=== PATIENT | female | born 1970 | race Caucasian/White ===

== ENCOUNTER 2016-07-22 14:16 | Emergency (ER) | payer BC ==
[~2016-07-22] VITALS: Ht 167.6 cm; Wt 69.6 kg
[~2016-07-22 14:16] MED LIST: CEPH500C2 PO; FLUO20CA35 PO; PROM25TA9 PO; RIZA10TA18 PO
[2016-07-22 14:19] VITALS: TEMP 36.3; Ht 167.6 cm; Wt 69.6 kg
[2016-07-22] MEDS ORDERED: XYLOCAINE 1%/SOD BICARB 20 ML VIAL INFIL ONE (14:25)
[2016-07-22] MEDS ORDERED: MULT-506 PO (14:26)
--- NOTE | 2016-07-22 15:23 | DIAGNOSTIC IMAGING REPORT ---
RIGHT HAND MIN 3 VIEWS ROUTINE CLINICAL HISTORY: Right index finger pain status post trauma. Laceration. COMPARISON: None. DISCUSSION: There is artifact from overlying bandage at the level of the index finger. There is evidence for a soft tissue injury involving the mid to distal aspect of the index finger. No acute fractures or subluxations are visualized. IMPRESSION: Soft tissue injury involving the index finger. No fractures are visualized. Electronically signed by: Kevin Moffett M.D. 07/22/2016 3:22 PM Dictated Date/Time: 07/22/2016 3:20 PM
[2016-07-22 15:52] VITALS: BP 122/74; PULSE 66; O2SAT 99
--- NOTE | 2016-07-23 21:15 | EMERGENCY ROOM VISIT NOTE ---
ED Visit Note First contact with patient: 14:27 Chief Complaint: I cut my right index finger. History of Present Illness: Ms. Aram Howard is a 45-year-old white female who ambulates into the ED complaining of a distal phalanx right index finger laceration. Patient reports just prior to coming in the hospital she was making lunch. She attempted to grab the blade of a research food technologist while he was still running and sustained a laceration to the right index finger. She attempted to control bleeding prior to arrival at the hospital but did not wash her wound. Associated with her and she reports she has a stinging pain over the distal finger. She rates this discomfort 4/10. The pain is nonradiating. Pain worsens with palpation. She has not identified any alleviating factors related to the pain. She has not taken any medication for pain prior to arrival at the hospital. She denies any associated symptoms including other finger pain, hand pain, right index finger numbness/tingling. Review of Systems: As noted above in history of present illness. 8 body systems were reviewed and found to be negative as noted above. Past Medical History: Migraine headaches, uterine ablation. Current Medications: Prozac, Maxalt, Phenergan, multivitamins. Allergies to Medications: Patient denies. Social History: Patient is currently employed; she feels safe in her home environment; she denies tobacco and alcohol use. Tetanus Immunization Status: Patient reports up-to-date. Physical Examination: Vital Signs: Date Time Temp Pulse Resp B/P Pulse Ox O2 Delivery O2 Flow Rate FiO2 07/22/16 15:52 66 18 122/74 99 07/22/16 14:19 36.3 83 17 126/76 99 Room Air GENERAL: 45-year-old female in mild distress due to pain, nontoxic-appearing, afebrile and hemodynamically stable. NEUROLOGICAL: Awake, alert and oriented to person, place and time. Answering questions appropriately and following commands. SKIN: Warm, dry and pink. Right Index Finger: Patient has a total of a 4 cm full-thickness lacerations over the distal phalanx. There is a flap associated with her laceration and there is active bleeding. RIGHT INDEX FINGER: Soft tissue injury as noted above. No gross bony deformity. Full range of motion of the DIP, PIP and MCP joints of the finger. The finger was warm and pink and capillary refill is brisk. She distinguish light sensations through all dermatomes. ED Course: Patient is assessed as noted above. Right Index Finger Laceration X-Rays: Were read by myself and shows no acute fractures or dislocations. Wound Repair: Complexity: Basic Verbal consent was obtained after the risks and benefits were explained. The skin was prepped with betadine and a sterile field set. Wound edges of the wound was anesthetized with 2.5 ml buffered 1% lidocaine. The wound was explored for foreign bodies and none found. Copious irrigation was performed using sterile saline. With direct pressure the bleeding subsided. Debridement was not performed. The wound edges were approximated using 5-0 Ethilon with 10 simple interrupted sutures. Hemostasis and excellent approximation was achieved. Antibacterial ointment, a sterile dressing applied and a finger splint was applied. No complications and the patient tolerated the procedure well. Patient was educated about tonight's findings and instructed on his treatment plan; he verbalizes understanding and agreement with this plan. Clinical Impression: Laceration of the right index finger. Disposition: Patient discharged home in stable condition; prior to departure he was reassessed and subjectively reported she was pain-free. Plan: Comfort measures, wound care, and signs of infection were discussed with the patient. Patient was encouraged to follow-up with PCP or return to the ED for signs of infection and/or suture removal in 10-12 days.
== END 2016-07-22 15:54 | disposition home or self-care (01) ==
LOC: C.EDB 14:18 → C.EDD 15:54
DX: S61.210A Laceration without foreign body of right index finger without damage to nail, initial encounter (principal); X15.8XXA Contact with other hot household appliances, initial encounter; Y92.010 Kitchen of single-family (private) house as the place of occurrence of the external cause; G43.909 Migraine, unspecified, not intractable, without status migrainosus; Z79.899 Other long term (current) drug therapy

== ENCOUNTER 2016-07-30 10:35 | Emergency (ER) | payer BC ==
[~2016-07-30] VITALS: Ht 167.6 cm; Wt 69.9 kg
[~2016-07-30 10:35] MED LIST changes: -CEPH500C2 PO; +MULT-506 PO
[2016-07-30 10:36] VITALS: TEMP 36.8; Ht 167.6 cm; Wt 69.9 kg
[2016-07-30] MEDS ORDERED: DiphenhydrAMINE HCL 50 MG/ML VIAL IV STA (10:46)
[2016-07-30] MEDS ORDERED: KETOROLAC TROMETHAMINE 30 MG/ML VIAL IV STA (10:46)
[2016-07-30] MEDS ORDERED: SODIUM CHLORIDE 0.9% 1000ML 1,000 ML IV STA (10:46)
[2016-07-30] MEDS ORDERED: PROMETHAZINE HCL INJ 12.5 MG in SODIUM CHLORIDE 0.9% 50ML 50 ML IV STA (10:46)
--- NOTE | 2016-07-30 10:47 | EMERGENCY ROOM VISIT NOTE ---
History Report prepared by Rivera: Lela Cat Under the Supervision of: Dr. David Galeana M.D. First contact with patient: 10:41 Chief Complaint: HEADACHE Stated Complaint: MIGRAINE History of Present Illness The patient is a 45 year old female who presents to the Emergency Room with complaints of a persistent migraine headache that began this morning. The patient has a history of migraine headaches and states that her current symptoms feel consistent with previous migraines. Her most recent ED visit for a migraine was September 2015. It is not the worst headache of her life. She also complains of nausea and vomiting. The patient is on Maxalt and tried to take it this morning, but could not keep it down. Denies weakness, loss of bowel or bladder control, or other complaints. Source of History: patient Onset: this morning Position: head Quality: other (migraine) Timing: other (persistent) Associated Symptoms: + nausea, + vomiting, No weakness Review of Systems See HPI for pertinent positives & negatives. A total of 10 systems reviewed and were otherwise negative. Past Medical & Surgical Medical Problems: (1) Anxiety (2) Depression (3) H/O migraine Family History Hypertension Kidney disease Social History Smoking Status: Never Smoker Marital Status: Housing Status: lives with significant other Occupation Status: employed Current/Historical Medications Scheduled Cephalexin Monohydrate (Keflex), 500 MG PO TID Fluoxetine (Prozac), 40 MG PO DAILY Loratadine (Claritin), 10 MG PO DAILY Multivitamin (Multivitamin), 1 TAB PO DAILY Scheduled PRN Promethazine Hcl (Phenergan), 25 MG PO Q6H PRN for Nausea Rizatriptan Benzoate (Maxalt), 10 MG PO UD PRN for Migraine Allergies Coded Allergies: No Known Allergies (Verified , 07/30/16) Physical Exam Vital Signs Date Time Temp Pulse Resp B/P Pulse Ox O2 Delivery O2 Flow Rate FiO2 07/30/16 12:15 91 16 125/78 98 Room Air 07/30/16 10:36 36.8 89 20 135/87 99 Room Air Physical Exam GENERAL: Patient is well appearing and in mild distress. Lights off in the room. HEAD: No acute trauma, normocephalic atraumatic ENT: Mucous membranes moist, no nasal congestion. EYES: Equal/Reactive Bilaterally, No scleral icterus, Normal ROM NECK: No nuchal rigidity, no meningismus, trachea is midline, full ROM LUNGS: No dyspnea. Clear to auscultation and equal bilaterally. No wheeze, no rhonchi. HEART: Regular rate and rhythm. No murmurs, rubs, gallops appreciated. ABDOMEN: Soft, nontender, bowel sounds positive, no masses appreciated, no peritonitis. BACK: No midline tenderness, no CVA tenderness EXTREMITIES: Normal motion all extremities, no cyanosis, no edema. NEUROLOGIC: Awake, Alert, Oriented, no acute motor or sensory deficits, no focal weakness, cranial nerves grossly intact. SKIN: No rash, no jaundice, no diaphoresis. Complex laceration right finger, swollen, no drainage, decreased sensation over tip, no streaking. Medical Decision & Procedures Medications Administered Medications (Trade) Dose Ordered Sig/[facility] Route Start Time Stop Time Status Last Admin Dose Admin Ketorolac Tromethamine 30 mg 30 mg NOW STAT IV 07/30/16 10:46 07/30/16 10:48 DC 07/30/16 10:55 30 MG Promethazine HCl 12.5 mg/Sodium Chloride 50.5 ml @ 204 mls/hr NOW STAT IV 07/30/16 10:46 07/30/16 11:00 DC 07/30/16 10:58 204 MLS/HR Sodium Chloride (Nss 1000ml) 1,000 ml @ 999 mls/hr Q1H1M STAT IV 07/30/16 10:46 07/30/16 11:46 DC 07/30/16 10:55 999 MLS/HR Diphenhydramine HCl (Benadryl Inj) 25 mg NOW STAT IV 07/30/16 10:46 07/30/16 10:48 DC 07/30/16 10:54 25 MG Hydromorphone HCl (Dilaudid Inj) 1 mg NOW STAT IV 07/30/16 11:31 07/30/16 11:32 DC 07/30/16 11:37 1 MG Dexamethasone Sodium Phosphate (Decadron Inj) 10 mg NOW ONCE IV 07/30/16 11:45 07/30/16 11:46 DC 07/30/16 11:37 10 MG Cephalexin Monohydrate (Keflex 500MG Home Pack) 1 homepack NOW ONCE PO 07/30/16 12:15 07/30/16 12:16 DC 07/30/16 12:21 1 HOMEPACK Cephalexin Monohydrate (Keflex Cap) 500 mg NOW ONCE PO 07/30/16 12:15 07/30/16 12:16 DC 07/30/16 12:20 500 MG ED Course 1044: The patient was evaluated in room A9. A complete history and physical exam was performed. 1046: Ordered Benadryl Inj 25 mg IV, NSS 1000 ml @ 999 mls/hr IV, Promethazine HCl 12.5 mg/NSS 50.5 ml @ 204 mls/hr IV, Toradol Inj 30 mg IV. 1130: Ordered Dilaudid Inj 1 mg IV. 1145: Ordered Decadron Inj 10 mg IV. 1150: I reassessed the patient. She is feeling much better. 1205: I reassessed the patient and removed 10 sutures from the distal finger and placed Steri Strips. Discussed results and discharge instructions: She verbalized understanding and agreement. The patient is ready for discharge. 1215: Ordered Keflex Cap 500 mg PO, Keflex 500 mg 1 homepack PO. Medical Decision Differential: Headache, Migraine, Cluster Headache, Seizure, Meningitis, Sinusitis, CO exposure, ICH/SAH, Infectious, Tumor, Sinus Thrombosis, Arterial Dissection, amongst other pathologies entertained. 45 yr old female with periodic severe headaches attributed to migraines with last ED visit 1 year ago. No fever, neck stiffness, nor neuro deficits. No recent trauma, falls, syncope. Partially resolved with toradol/phen/benadryl and fully resolved with dose dilaudid/decadron (discussed risks narcotics). Has sutures right pointer finger (left handed) which need to be removed. No clear evidence of infection though is somewhat swollen and mildly erythematous laterally, thus given complex wound will place on brief course of abx. Minimal distal tip sensation but cap refill intact. Discussed wound care, monitoring and if signs of infection RTED. Impression Primary Impression: Headache Additional Impressions: Migraine Encounter for removal of sutures Encounter for re-check of laceration wound Scribe Attestation The scribe's documentation has been prepared under my direction and personally reviewed by me in its entirety. I confirm that the note above accurately reflects all work, treatment, procedures, and medical decision making performed by me. Departure Information Dispostion Home / Self-Care Prescriptions Cephalexin Monohydrate (Keflex) 500 Mg Cap 500 MG PO TID for 5 Days, #15 CAP Prov: David Galeana M.D. 07/30/16 Referrals Sharon Martinez M.D. (MEDICAL) (PCP) Patient Instructions ED Headache Migraine, My [facility] Additional Instructions Monitor closely for signs of infection. If drainage, red streaks, severe pain, or other concerns return for further evaluation. Steri Strips will fall off over the next few days and if not can be gentle removed after washing with some soap and water. Do not soak finger until wound is fully healed. Problem Qualifiers Primary Impression: Headache Headache type: unspecified Headache chronicity pattern: acute headache Intractability: not intractable Qualified Codes: R51 - Headache Additional Impressions: Migraine Migraine type: unspecified Status migrainosus presence: without status migrainosus Intractability: not intractable Qualified Codes: G43.909 - Migraine, unspecified, not intractable, without status migrainosus
[2016-07-30] MEDS ORDERED: LORA10TA51 PO (11:03)
[2016-07-30] MEDS ORDERED: HYDROmorphone INJ 1 MG/ML SYR IV STA (11:31)
[2016-07-30] MEDS ORDERED: DEXAMETHASONE SOD INJ 10 MG/ML VIAL IV ONE (11:45)
[2016-07-30 12:15] VITALS: BP 125/78; PULSE 91; O2SAT 98
[2016-07-30] MEDS ORDERED: CEPHALEXIN 500MG HOME PACK 1 EA BTL PO ONE (12:15)
[2016-07-30] MEDS ORDERED: CEPHALEXIN MONOHYDRATE 250 MG CAP PO ONE (12:15)
[2016-07-30] MEDS ORDERED: CEPH500C PO (12:18)
== END 2016-07-30 12:27 | disposition home or self-care (01) ==
LOC: C.EDB 10:36 → C.EDA 12:27
DX: R51 Headache (principal); Z48.02 Encounter for removal of sutures; F32.9 Major depressive disorder, single episode, unspecified; F41.9 Anxiety disorder, unspecified; Z79.899 Other long term (current) drug therapy; Z82.49 Family history of ischemic heart disease and other diseases of the circulatory system

== ENCOUNTER → 2017-02-24 | Outpatient (CLI) | payer BC ==
[~2017-02-24] MED LIST changes: +LORA10TA51 PO
--- NOTE | 2017-02-25 07:42 | MAMMOGRAPHY REPORT ---
BILATERAL DIGITAL SCREENING MAMMOGRAM TOMOSYNTHESIS WITH CAD: 02/24/2017 CLINICAL HISTORY: Routine screening. Patient has no complaints. TECHNIQUE: Breast tomosynthesis in addition to standard 2D mammography was performed. Current study was also evaluated with a Computer Aided Detection (CAD) system. COMPARISON: Comparison is made to exams dated: 02/22/2016 mammogram, 02/14/2015 mammogram, 09/20/2013 ma mmogram, 09/11/2012 mammogram, 09/06/2011 mammogram, and 09/18/2011 mammogram - [facility] ter. BREAST COMPOSITION: The tissue of both breasts is heterogeneously dense, which may obscure small mas ses. FINDINGS: There are benign scattered calcifications in both breasts. No new suspicious mass, jovanni ectural distortion or cluster of microcalcifications is seen. IMPRESSION: ACR BI-RADS CATEGORY 2: BENIGN There is no mammographic evidence of malignancy. A 1 year screening mammogram is recommended. The pa tient will receive written notification of the results. Approximately 10% of breast cancers are not detected with mammography. A negative mammographic report should not delay biopsy if a clinically suggestive mass is present. Fe Thapa M.D. ay/:02/24/2017 16:48:22 General Dentist: Eladia SWARTZ(Rosalinda)(M), [facility] letter sent: Normal 1/2 BI-RADS Code: ACR BI-RADS Category 2: Benign
== END | disposition home or self-care (01) ==
LOC: C.MAMM 08:48
PROVIDERS: ATTEND Family Medicine
DX: Z12.31 Encounter for screening mammogram for malignant neoplasm of breast (principal)

== ENCOUNTER 2017-06-21 23:33 | Emergency (ER) | payer BC, OTHER ==
[~2017-06-21] VITALS: Ht 167.6 cm; Wt 73.2 kg
[2017-06-21 23:41] VITALS: TEMP 36.4; Ht 167.6 cm; Wt 73.2 kg
[2017-06-21] MEDS ORDERED: SODIUM CHLORIDE 0.9% 1000ML 1,000 ML IV STA (23:57)
[2017-06-21] MEDS ORDERED: KETOROLAC TROMETHAMINE 30 MG/ML VIAL IV STA (23:57)
[2017-06-21] MEDS ORDERED: PROMETHAZINE HCL INJ 12.5 MG in SODIUM CHLORIDE 0.9% 50ML 50 ML IV STA (23:57)
[2017-06-21] MEDS ORDERED: DiphenhydrAMINE HCL 50 MG/ML VIAL IV STA (23:57)
--- NOTE | 2017-06-22 00:06 | EMERGENCY ROOM VISIT NOTE ---
ED Visit Note First contact with patient: 23:45 CHIEF COMPLAINT: Migraine headache HISTORY OF PRESENT ILLNESS: This 46-year-old female patient presented to the emergency department ambulatory, with a gradual onset of a severe generalized headache that started approximately 4 hours ago. The patient states the migraine is similar to their typical migraines. There has been associated photophobia, phonophobia, nausea and vomiting. The patient denies fever or chills recently, and there is no weakness or numbness of the extremities. There is no difficulty with speech or vision. No trauma to the head and no neck pain. The pain is located in the posterior aspect of the head, is severe, constant, and it is slowly increasing in severity. The patient rates the pain as severe and 10/10. The patient has taken one dose of Maxalt one and half hours after onset of migraine without relief. This is not the worst headache of the life and is similar to previous migraines. Previous imaging studies of the brain have been normal. REVIEW OF SYSTEMS: A 10 system review of systems was performed with positives and pertinent negatives listed in the history of present illness. All other systems were reviewed and are negative. ALLERGIES: None MEDICATIONS: Maxalt, Prozac PMH: Anxiety, depression SOCIAL HISTORY: The patient lives locally with family. She denies drug, alcohol , tobacco use. PHYSICAL EXAM: Vital Signs: Reviewed Nurse's notes, vital signs stable. GENERAL : This is a 46-year-old white female, who appears in pain, but non toxic in appearance and in no acute distress. MENTAL STATUS: Alert, oriented, and coherent. HEENT: Normocephalic. PERRLA. EOMI. Nares patent without nuchal rigidity. Tympanic membranes pearly christiansen without erythema or effusion bilaterally. Mucous membranes moist. NECK: Supple, no nuchal rigidity, nontender, no lymphadenopathy. HEART: Regular rhythm and normal rate without murmurs, ectopy, gallops, or rubs. LUNGS: Clear to auscultation bilaterally without wheezes, rales or rhonchi. No dullness to percussion. No accessory muscle use. No retractions. SKIN: Normal. NEUROLOGICAL: Pupils are round, equal and react to light. The optic fundi are normal and the discs are flat. The patient moves all extremities well and the gait is normal. EMERGENCY DEPARTMENT COURSE: I examined the patient. The patient has been seen here in the past for migraines. Previous medical records reviewed. The patient was given 1L NSS, 12.5 mg Phenergan, 30 mg Toradol, and 25 mg Benadryl IV. She was reassessed, and states she is feeling much better and is ready to go home. Discharge instructions reviewed, the patient was discharged home with her driving. I attest that I have personally reviewed the patient's current medication list. Patient was found to have normal blood pressure on screening and does not require follow-up. The differential diagnosis includes acute intracranial bleed, meningitis, encephalitis, mass or mass effect, sinusitis, infection, tumor, headache, temporal arteritis and carbon monoxide exposure, and migraine. The patient was discharged home in stable condition with [] driving. DIAGNOSIS: Migraine headache Current/Historical Medications Scheduled Calcium Carbonate-Vitamin D (Calcium), 1 TAB PO DAILY Fluoxetine (Prozac), 40 MG PO DAILY Loratadine (Claritin), 10 MG PO DAILY Multivitamin (Multivitamin), 1 TAB PO DAILY Scheduled PRN Promethazine Hcl (Phenergan), 25 MG PO Q6H PRN for Nausea Rizatriptan Benzoate (Maxalt), 10 MG PO UD PRN for Migraine Allergies Coded Allergies: No Known Allergies (Verified , 06/22/17) Vital Signs Date Time Temp Pulse Resp B/P (MAP) Pulse Ox O2 Delivery O2 Flow Rate FiO2 06/22/17 01:32 102 20 102/59 98 06/21/17 23:41 36.4 91 18 134/92 100 Room Air Medications Administered Medications (Trade) Dose Ordered Sig/[facility] Route Start Time Stop Time Status Last Admin Dose Admin Sodium Chloride 1,000 ml @ 999 mls/hr Q1H1M STAT IV 06/21/17 23:57 06/22/17 00:57 DC 06/22/17 00:18 999 MLS/HR Ketorolac Tromethamine (Toradol Inj) 30 mg NOW STAT IV 06/21/17 23:57 06/22/17 00:04 DC 06/22/17 00:18 30 MG Diphenhydramine HCl (Benadryl Inj) 25 mg NOW STAT IV 06/21/17 23:57 06/22/17 00:04 DC 06/22/17 00:18 25 MG Promethazine HCl 12.5 mg/Sodium Chloride 50.5 ml @ 204 mls/hr NOW STAT IV 06/21/17 23:57 06/22/17 00:11 DC 06/22/17 00:20 204 MLS/HR Departure Information Impression Primary Impression: Migraine Dispostion Home / Self-Care Condition GOOD Referrals Sharon Martinez M.D. (MEDICAL) (PCP) Patient Instructions ED Headache Migraine, My [facility] Additional Instructions DO NOT drive, drink alcohol, operate machinery, or perform dangerous activities today. You were given medications in the ER that can affect your ability to safely function or operate a vehicle. Rest today in a quiet, peaceful, dark environment and get a full 8-10 hrs of sleep tonight. Avoid loud noises, smoke/smoking, alcohol, bright lights, stress, or physical exertion today to minimize the chance the headache may return. Continue current medications as prescribed. Ibuprofen(Motrin, Advil) may be used for fever or pain. Use 600mg every six hours as needed. Take with food. Avoid using more than 2400mg in a 24 hour period. Do not use 2400mg per day for more than three consecutive days without physician direction. Prolonged inappropriate use can lead to stomach upset or ulcers. (AND/OR) Acetaminophen(Tylenol) may be used for fever or pain. Use 1000mg every six hours as needed. Avoid using more than 3000mg in a 24 hour period. Return to the ER for passing out, worsening headache, vision problems, neck stiffness/pain, fevers, vomiting, worsening of your condition, or as needed. Follow up with your primary physician in 2-3 days for a recheck of your current condition. Problem Qualifiers Primary Impression: Migraine Migraine type: without aura Status migrainosus presence: with status migrainosus Intractability: intractable Qualified Codes: G43.011 - Migraine without aura, intractable, with status migrainosus
[2017-06-22] MEDS ORDERED: CALC-51 PO (00:20)
[2017-06-22 01:32] VITALS: BP 102/59; PULSE 102; O2SAT 98
== END 2017-06-22 01:33 | disposition home or self-care (01) ==
LOC: C.EDB 23:35 → C.EDA 06-22 01:33
DX: G43.011 Migraine without aura, intractable, with status migrainosus (principal); F32.9 Major depressive disorder, single episode, unspecified; F41.9 Anxiety disorder, unspecified

== ENCOUNTER 2017-09-17 08:26 | Emergency (ER) | payer OTHER ==
[~2017-09-17 08:26] MED LIST changes: +CALC-51 PO
[2017-09-17 08:37] VITALS: TEMP 36.5
[2017-09-17] MEDS ORDERED: KETOROLAC TROMETHAMINE 30 MG/ML VIAL IV STA (09:07)
[2017-09-17] MEDS ORDERED: SODIUM CHLORIDE 0.9% 1000ML 1,000 ML IV STA (09:07)
[2017-09-17] MEDS ORDERED: PROMETHAZINE HCL INJ 12.5 MG in SODIUM CHLORIDE 0.9% 50ML 50 ML IV STA (09:07)
[2017-09-17] MEDS ORDERED: DiphenhydrAMINE HCL 50 MG/ML VIAL IV STA (09:07)
[2017-09-17] MEDS ORDERED: CLR10 PO (09:22)
[2017-09-17 09:29] LABS: BASO % 0.6 %; BASO ABS # 0.05 K/uL (0-0.2); EOS % 1.1 %; EOS ABS # 0.09 K/uL (0-0.5); HEMATOCRIT 39.8 % (37-47); HEMOGLOBIN 13.5 g/dL (12.0-16.0); IG# 0.01 K/uL (0.00-0.02); LYMPH % 5.7 %; LYMPH ABS # 0.45 K/uL (1.2-3.4); MEAN CELL VOLUME 88.8 fL (80-100); MEAN CORPUSCULAR HEMOGLOBIN 30.1 pg (25-34); MEAN CORPUSCULAR HGB CONC 33.9 g/dl (32-36); MEAN PLATELET VOLUME 9.1 fL (7.4-10.4); MONO % 5.3 %; MONO ABS # 0.42 K/uL (0.11-0.59); NEUT % 87.2 %; NEUT ABS # 6.92 K/uL (1.4-6.5); PLATELET COUNT 240 K/uL (130-400); RED CELL DISTRIBUTION WIDTH CV 13.1 % (11.5-14.5); RED CELL DISTRIBUTION WIDTH SD 42.6 fL (36.4-46.3); WHITE BLOOD COUNT 7.94 K/uL (4.8-10.8)
[2017-09-17 09:47] LABS: ALBUMIN 3.6 gm/dl (3.4-5.0); ALT/SGPT 21 U/L (12-78); AST/SGOT 18 U/L (15-37); BLOOD UREA NITROGEN 13 mg/dl (7-18); CALCIUM 8.8 mg/dl (8.5-10.1); CARBON DIOXIDE 30 mmol/L (21-32); CREATININE 0.73 mg/dl (0.60-1.20); GLUCOSE 89 mg/dl (70-99); POTASSIUM 3.8 mmol/L (3.5-5.1); SODIUM 137 mmol/L (136-145)
[2017-09-17 09:50] LABS: ALKALINE PHOSPHATASE 52 U/L (45-117); TOTAL PROTEIN 7.4 gm/dl (6.4-8.2)
--- NOTE | 2017-09-17 11:12 | EMERGENCY ROOM VISIT NOTE ---
History First contact with patient: 08:41 Chief Complaint: HEADACHE Stated Complaint: MIGRAINE History of Present Illness The patient is a 47 year old female who presents to the Emergency Room via private vehicle accompanied by male with complaints of "migraine headache". The patient states that she has a history of migraines of which she follows with her family doctor for. She states that she began with a headache this morning which is identical to previous migraines however the only difference is now she has minimal right-sided neck pain. She notes light sensitivity as usual , as well as nausea, vomiting and diarrhea. She tried Maxalt around 6:40 AM without relief. She denies any recent illness, speech troubles, weakness. notes no change from baseline migraine. Review of Systems A complete 10-point Review of Systems was discussed with the patient, with pertinent positives and negatives listed in the History of Present Illness. All remaining Review of Systems questions can be considered negative unless otherwise specified. Past Medical/Surgical History Medical Problems: (1) Anxiety (2) Depression (3) H/O migraine Family History Hypertension Kidney disease Social History Smoking Status: Former Smoker Marital Status: Housing Status: lives with significant other Occupation Status: employed Current/Historical Medications Scheduled Fluoxetine (Prozac), 40 MG PO DAILY Loratadine (Claritin), 10 MG PO DAILY Multivitamin (Multivitamin), 1 TAB PO DAILY Scheduled PRN Rizatriptan Benzoate (Maxalt), 10 MG PO UD PRN for Migraine Physical Exam Vital Signs Date Time Temp Pulse Resp B/P (MAP) Pulse Ox O2 Delivery O2 Flow Rate FiO2 09/17/17 11:23 76 16 91/42 98 09/17/17 10:53 80 20 98/59 97 Room Air 09/17/17 10:01 82 20 117/72 100 09/17/17 09:30 80 20 107/60 97 09/17/17 08:37 36.5 72 20 119/42 98 Room Air Physical Exam VITAL SIGNS - Vital signs and nursing notes were reviewed. Stable. GENERAL -47-year-old female appearing her stated age who is in no acute distress. Communicates well with provider and answers questions appropriately. SKIN - Without rashes. No meningeal petechial rash. HEAD - NC/AT. EYES - PERRL with EOMI bilaterally. Sclera anicteric. Palpebral conjunctiva pink and moist with no injection noted. EARS - No deformities of external structures noted on gross examination bilaterally. No pain elicited with palpation of the tragus bilaterally. External auditory canals without discharge or otorrhea. Tympanic membranes pearly christiansen without retraction or bulging. No fluid or purulent material visualized behind the TM. Handle of malleus, umbo, cone of light, pars tensa/ flaccid all easily visualized. NOSE - Midline and without cyanosis. No epistaxis or purulent drainage noted. Septum midline without deviation or septal hematoma noted. MOUTH/OROPHARYNX - Without perioral cyanosis. Buccal mucosa pink and moist and without leukoplakia. Tongue midline with equal elevation of palate bilaterally. No tonsillar hypertrophy, erythema, or exudates noted. Fair dentition noted. NECK - Neck with FROM. Supple to palpation. No lymphadenopathy noted. No nuchal rigidity. No real identifiable tenderness or abnormality in the right side of the neck. LUNGS - Chest wall symmetric without accessory muscle use, intercostals retractions, or central cyanosis. Normal vesicular breath sounds CTA B/L. No wheezes, rales, or rhonchi appreciated. CARDIAC - RRR with S1/S2. No murmur, rubs, or gallops appreciated. EXTREMITIES - No clubbing or peripheral cyanosis. No pretibial edema present. + 5/5 strength noted in UE/LE bilaterally. NEUROLOGIC - Cranial nerves II through XII grossly intact. Sensory intact to light touch throughout. PSYCH - A&O, and cooperates fully with examiner. Pt is very pleasant and interacts well with examiner. Medical Decision & Procedures Laboratory Results 09/17/17 09:17 Red Blood Count 4.48, Mean Corpuscular Volume 88.8, Mean Corpuscular Hemoglobin 30.1, Mean Corpuscular Hemoglobin Concent 33.9, Mean Platelet Volume 9.1, Neutrophils (%) (Auto) 87.2, Lymphocytes (%) (Auto) 5.7, Monocytes (%) (Auto) 5.3, Eosinophils (%) (Auto) 1.1, Basophils (%) (Auto) 0.6, Neutrophils # (Auto) 6.92, Lymphocytes # (Auto) 0.45, Monocytes # (Auto) 0.42, Eosinophils # (Auto) 0.09, Basophils # (Auto) 0.05 09/17/17 09:17 Test 09/17/17 09:17 White Blood Count 7.94 K/uL (4.8-10.8) Red Blood Count 4.48 M/uL (4.2-5.4) Hemoglobin 13.5 g/dL (12.0-16.0) Hematocrit 39.8 % (37-47) Mean Corpuscular Volume 88.8 fL (80-100) Mean Corpuscular Hemoglobin 30.1 pg (25-34) Mean Corpuscular Hemoglobin Concent 33.9 g/dl (32-36) Platelet Count 240 K/uL (130-400) Mean Platelet Volume 9.1 fL (7.4-10.4) Neutrophils (%) (Auto) 87.2 % Lymphocytes (%) (Auto) 5.7 % Monocytes (%) (Auto) 5.3 % Eosinophils (%) (Auto) 1.1 % Basophils (%) (Auto) 0.6 % Neutrophils # (Auto) 6.92 K/uL (1.4-6.5) Lymphocytes # (Auto) 0.45 K/uL (1.2-3.4) Monocytes # (Auto) 0.42 K/uL (0.11-0.59) Eosinophils # (Auto) 0.09 K/uL (0-0.5) Basophils # (Auto) 0.05 K/uL (0-0.2) RDW Standard Deviation 42.6 fL (36.4-46.3) RDW Coefficient of Variation 13.1 % (11.5-14.5) Immature Granulocyte % (Auto) 0.1 % Immature Granulocyte # (Auto) 0.01 K/uL (0.00-0.02) Anion Gap 0.0 mmol/L (3-11) Estimated GFR () 114.5 Estimated GFR (Non- 98.8 BUN/Creatinine Ratio 18.1 (10-20) Calcium Level 8.8 mg/dl (8.5-10.1) Magnesium Level 2.0 mg/dl (1.8-2.4) Total Bilirubin 0.4 mg/dl (0.2-1) Aspartate Amino Transf (AST/SGOT) 18 U/L (15-37) Alanine Aminotransferase (ALT/SGPT) 21 U/L (12-78) Alkaline Phosphatase 52 U/L (45-117) Total Protein 7.4 gm/dl (6.4-8.2) Albumin 3.6 gm/dl (3.4-5.0) Globulin 3.8 gm/dl (2.5-4.0) Albumin/Globulin Ratio 0.9 (0.9-2) Medications Administered Medications (Trade) Dose Ordered Sig/Siobhan Route Start Time Stop Time Status Last Admin Dose Admin Sodium Chloride 1,000 ml @ 999 mls/hr Q1H1M STAT IV 09/17/17 09:07 09/17/17 10:07 DC 09/17/17 09:07 999 MLS/HR Ketorolac Tromethamine (Toradol Inj) 30 mg NOW STAT IV 09/17/17 09:07 09/17/17 09:11 DC 09/17/17 09:28 30 MG Diphenhydramine HCl (Benadryl Inj) 25 mg NOW STAT IV 09/17/17 09:07 09/17/17 09:11 DC 09/17/17 09:28 25 MG Promethazine HCl 12.5 mg/Sodium Chloride 50.5 ml @ 204 mls/hr NOW STAT IV 09/17/17 09:07 09/17/17 09:21 DC 09/17/17 09:59 204 MLS/HR Medical Decision Patient was seen and evaluated as above in room A2. Review was performed of nursing notes and vital signs. After obtaining a thorough history and physical examination the above work up was performed. She presents to us today with a headache. This is identical to previous with the only new finding being minimal right-sided neck pain. No evidence of meningitis or encephalitis. She was given Phenergan, fluids, Benadryl and Toradol noting that she received this previously with excellent relief. This provided complete resolution of her headache. She then noted she would like to go home to rest. I believe this is reasonable. I did elect to obtain baseline labs to identify an interval change and there is no concerning leukocytosis, or anemia. Her anion gap is 0 however given her other underlying labs being normal and her presentation believe this to be of no significance. She was educated upon worrisome symptoms which to return. I do not believe that a CT scan of the head is warranted at this time given that this is identical to previous presentation for her headache, and was alleviated with minimal medications. There is no concerning leukocytosis. No finding of meningitis. No trauma. The patient was educated upon management, had questions answered prior to discharge, and was discharged home in good condition. She is to follow with the family doctor. She is to call them to follow-up. In the evaluation and treatment of this patient, the following differential diagnoses were considered: Migraine Headache, Intracranial Hemorrhage, Subdural Hematoma, Subarachnoid Hemorrhage, Cerebral Aneurysm, Temporal/Giant Cell Arteritis, Tension Headache, Meningitis, Encephalitis, or Hydrocephalus. Impression Primary Impression: Headache Departure Information Dispostion Home / Self-Care Condition GOOD Referrals Sharon Martinez M.D. (MEDICAL) (PCP) Patient Instructions My [facility] Additional Instructions You have been treated in the Emergency Department for a Headache. You have received pain medicine in the emergency department which impairs your ability to operate a vehicle. It is illegal for you to drive after receiving these medicines. For pain control, you can use the following [id number] medicines: - Regular strength (325mg/tab) Tylenol (acetaminophen) 2 tabs every 4-6 hours as needed. Do not exceed 12 tablets in a 24 hour period. Avoid taking more than 3 grams (3000 mg) of Tylenol per day. This includes any other sources of acetaminophen you may take on a regular basis. - Regular strength (200 mg/tab) Advil (ibuprofen) 1-2 tabs every 4-6 hours as needed. Do not exceed a dose of 3200 mg per day. You should relax in a quiet, dark place for the rest of the day. Avoid any possible triggers including: cigarette smoke, caffeine, nicotine, chocolate, wine, beer, loud noises or music, or bright lights. You should schedule a follow-up appointment in 2-3 days with your Primary Care Provider or established Neurologist for further evaluation and treatment of your Headache. Return to the Emergency Department if your current symptoms worsen despite treatment course outlined above, or if you develop any of the following symptoms : intractable pain despite aforementioned treatment course, visual disturbances , loss of vision, unilateral weakness or facial drooping, slurring of speech, loss of coordination, or loss of consciousness.
[2017-09-17 11:23] VITALS: BP 91/42; PULSE 76; O2SAT 98
== END 2017-09-17 11:23 | disposition home or self-care (01) ==
LOC: C.EDB 08:27 → C.EDA 11:23
DX: G43.909 Migraine, unspecified, not intractable, without status migrainosus (principal); F41.9 Anxiety disorder, unspecified; F32.9 Major depressive disorder, single episode, unspecified; Z82.49 Family history of ischemic heart disease and other diseases of the circulatory system; Z84.1 Family history of disorders of kidney and ureter; Z87.891 Personal history of nicotine dependence; Z79.899 Other long term (current) drug therapy